=== PATIENT | male | born 1945 | race African-American/Black ===

== ENCOUNTER 2017-12-24 18:12 | Emergency (ER) | payer MEDICARE, OTHER ==
[~2017-12-24] VITALS: Ht 175.3 cm; Wt 71.7 kg
[~2017-12-24 18:12] MED LIST: AMARYL4 MG ORAL; AMIODARONE HCL200 MG; AMIODARONE HCL400 M1 ORAL; ASPIRIN-LOW81 MG ORAL; CARVEDILOL6.25 MG; CARVEDILOL6.25 MG PO; CELEBREX100 MG; CLONIDINE HCL0.1 MG; DIOVAN HCT 1601 EAC1 ORAL; FERROUS SULFAT325 MG ORAL; FLOMAX0.4 MG ORAL; FOSPHENYTOIN 100 MG PO; GLIPIZIDE5 MG ORAL; GUAIFENESIN-CO118 M1 ORAL; HUMALOG100 UNIT/4 SUBQ; LANTUS SOL100 UNIT/1 SUBQ; LIDOPATCH1 EACH TDERMAL; LOVAZA1 GM ORAL; MEGACE ORA400 MG/10 ORAL; METOPROLOL TART50 MG PO; MULTAQ400 MG ORAL; NATEGLINIDE120 MG; NITROGLYCERIN0.4 MG SL; NORCO 5/3251 TAB ORAL; OMEPRAZOLE20 M1 ORAL; ONGLYZA5 MG ORAL; OYST-CAL D TAB1 EACH PO; PEN NEEDLE1 EAC5; PLAVIX75 MG ORAL; REQUIP0.5 MG PO; RESTASIS1 EACH BOTH EYES; ROBITUSSIN AC5 ML ORAL; SANDIMMUNE PO; SIMVASTATIN10 MG ORAL; STARLIX120 MG PO; STARLIX60 MG ORAL; TAMIFLU75 MG ORAL; TOPROL XL25 MG ORAL; VASCEPA1 GM; XARELTO10 MG PO; ZESTRIL20 MG ORAL; ZESTRIL20 MG PO; ZITHROMAX250 MG ORAL; [UNRECOGNIZED DRUG - OTHER] PO
[2017-12-24 18:27] VITALS: BP 136/66
--- NOTE | 2017-12-24 19:00 | Emergency Room Report ---
History of Present Illness General Chief Complaint: Skin Rash/Abscess Source: Patient, Medical Record Present Illness HPI 72-year-old male presents to the emergency department complaining of multiple raised erythematous follicles about the jawline N chin 3 days status post shaving with a razor that is very old. Patient also reports swelling and tenderness to a small lump on the left side of the lower neck. Patient denies sore throat or changes in voice. Patient denies fevers or chills. Patient denies itching. Denies lesions/rashes elsewhere on the body. Denies new medications or body washes or creams. Denies swelling of the lips, tongue , throat or airway. Denies wheezing, or shortness of breath. Denies recent travel , recent illness or ill contacts. denies blisters, oral lesions, or sloughing of the skin. Allergies: Coded Allergies: BACLOFEN (Verified Allergy, Mild, 07/04/09) DULOXETINE (Verified Allergy, Unknown, 07/04/09) IODINE (Verified Allergy, Unknown, 10/11/10) PREGABALIN (Verified Allergy, Unknown, Rash, 07/23/14) SEVERE VOMITING AND RASH TRAMADOL (Verified Allergy, Unknown, 10/11/10) TRIMETHOBENZAMIDE (Verified Allergy, Unknown, 10/11/10) HYDROCODONE (Verified Adverse Reaction, Intermediate, BURNING IN STOMACH/ GI UPSET, 07/20/14) HYDROCHLOROTHIAZIDE (Verified Adverse Reaction, Mild, LEG CRAMPS, 07/20/14) Patient History Past Medical History: see triage record Past Surgical History: none Pertinent Family History: none Immunizations: UTD Reviewed Nursing Documentation: PMH: Agreed, PSxH: Agreed Nursing Documentation-PM Past Medical History: No History, Except For Hx Cardiac Problems: Yes - HIGH CHOLESTEROL Hx Hypertension: Yes Hx Pacemaker: Yes Hx Diabetes: Yes Hx Cancer: No Hx Gastrointestinal Problems: Yes - HX OF GERD Hx Neurological Problems: Yes 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 Hx Tremors: Yes - COMPLAINED OF HAVING TREMORS ON AND OFF Hx Dizziness: Yes Hx Headaches: Yes Hx Weakness: Yes Review of Systems All Other Systems: negative except mentioned in HPI Physical Exam Vital Signs Date Time Temp Pulse Resp B/P (MAP) Pulse Ox O2 Delivery O2 Flow Rate FiO2 12/24/17 18:17 98.0 60 18 136/66 96 Room Air 98.1 Sp02 EP Interpretation: reviewed, normal General Appearance: no apparent distress, alert, GCS 15, non-toxic Head: normocephalic, atraumatic ENT: hearing grossly normal, normal voice Neck: full range of motion, no meningismus, no bony tend Respiratory: lungs clear, normal breath sounds, speaking full sentences Cardiovascular #1: regular rate, rhythm Musculoskeletal: back normal, gait/station normal, normal range of motion, non- tender Neurologic: alert, oriented x3, responsive, motor strength/tone normal, sensory intact, speech normal, grossly normal Psychiatric: judgement/insight normal Skin: normal color, warm/dry, well hydrated, other - multiple inflammed hair follicles no pustules noted, location about the mustache and bear area, no well defined board or annular appearance. 1 sebaceous cyst on the left side of the neck less than 0.5cm in size, some thick white d/c expressing noted, palpable capsule. Lymphatic: no adenopathy Medical Decision Making PA Attestation Dr. Carter is my supervising Physician whom patient management has been discussed with. Diagnostic Impression: Primary Impression: Folliculitis Additional Impression: Sebaceous cyst ER Course 72-year-old male presents to the emergency department complaining of multiple raised erythematous follicles about the jawline N chin 3 days status post shaving with a razor that is very old. Patient also reports swelling and tenderness to a small lump on the left side of the lower neck. Patient denies sore throat or changes in voice. Patient denies fevers or chills. Patient denies itching. Denies lesions/rashes elsewhere on the body. Denies new medications or body washes or creams. Denies swelling of the lips, tongue , throat or airway. Denies wheezing, or shortness of breath. Denies recent travel , recent illness or ill contacts. denies blisters, oral lesions, or sloughing of the skin. Ddx considered but are not limited to cellulitis, abscess, cystic acne, necrotizing fasciitis, insect bite, folliculitis, tinea barbae, sebaceous cyst. Vital signs: are WNL, pt. is afebrile H&PE are most consistent with sebaceous cyst of the left side of the neck, and folliculitis. ORDERS: none required at this time, the diagnosis is clinical ED INTERVENTIONS: - some purulent d/c is expressed with only manual pressure. cyst is palpated. DISCHARGE: At this time pt. is stable for d/c to home. Will provide printed patient care instructions, and any necessary prescriptions. Care plan and follow up instructions have been discussed with the patient prior to discharge. Last Vital Signs Date Time Temp Pulse Resp B/P (MAP) Pulse Ox O2 Delivery O2 Flow Rate FiO2 12/24/17 18:17 98.0 60 18 136/66 96 Room Air 98.1 Disposition: HOME, SELF-CARE Condition: Stable Scripts Cephalexin* (KEFLEX*) 500 Mg Capsule 500 MG ORAL EVERY 12 HOURS for 7 Days, #14 CAP 0 Refills Prov: Homa Randolph 12/24/17 Clindamycin Phosphate (CLINDAGEL) 40 Ml Gel..ml. 1 APPLIC TP BID, #40 ML Prov: Homa Randolph 12/24/17 Referrals: NON PHYSICIAN (PCP) Patient Instructions: Epidermal Cyst, [id number], Folliculitis Additional Instructions: Take medications as directed. Follow up with a Primary Care Provider in 3-5 days, even if your symptoms have resolved. --Please review list of primary care clinics, if you do not already have a primary care provider Return sooner to ED if new symptoms occur, or current symptoms become worse. - Please note that this Emergency Department Report was dictated using [employer] technology manager technology software, occasionally this can lead to erroneous entry secondary to interpretation by the dictation equipment. Homa Randolph Dec 24, 2017 19:00
[2017-12-24] MEDS ORDERED: CEPHALEXIN500 MG ORAL (19:01)
[2017-12-24] MEDS ORDERED: CLINDAGEL40 M1 TP (19:01)
[2017-12-24 19:07] VITALS: BP 136/66
== END 2017-12-24 19:07 | disposition home or self-care (01) ==
LOC: EMR 18:30
DX: L73.9 Follicular disorder, unspecified (principal); L72.3 Sebaceous cyst; I10 Essential (primary) hypertension; E11.9 Type 2 diabetes mellitus without complications; Z95.0 Presence of cardiac pacemaker; Z88.6 Allergy status to analgesic agent; Z88.8 Allergy status to other drugs, medicaments and biological substances
CPT/HCPCS: 99284

== ENCOUNTER 2019-09-06 11:47 | Emergency (ER) | payer MEDICARE, OTHER ==
[~2019-09-06] VITALS: Ht 175.3 cm; Wt 68.0 kg
[~2019-09-06 11:47] MED LIST changes: +CEPHALEXIN500 MG ORAL; +CLINDAGEL40 M1 TP
[2019-09-06 12:00] VITALS: BP 105/59
[2019-09-06 12:30] LABS: BASOPHILS % (AUTO) 0.9 % (0.0-2.0); EOSINOPHILS % (AUTO) 0.7 % (0.0-3.0); HEMATOCRIT 33.6 % (42.0-52.0); LYMPHOCYTES % (AUTO) 29.1 % (20.0-45.0); MEAN CORPUSCULAR VOLUME 94 FL (80-99); MONOCYTES % (AUTO) 12.6 % (1.0-10.0); NEUTROPHILS % (AUTO) 56.7 % (45.0-75.0); PLATELET COUNT 155 K/UL (150-450); RED BLOOD COUNT 3.57 M/UL (4.70-6.10); RED CELL DISTRIBUTION WIDTH 9.9 % (11.6-14.8); WHITE BLOOD COUNT 4.8 K/UL (4.8-10.8)
[2019-09-06 12:44] LABS: ANION GAP 9 mmol/L (5-15); BLOOD UREA NITROGEN 21 mg/dL (7-18); CALCIUM 8.6 MG/DL (8.5-10.1); CARBON DIOXIDE 26 MMOL/L (21-32); CHLORIDE 104 MMOL/L (98-107); CREATININE 1.2 MG/DL (0.55-1.30); POTASSIUM 4.4 MMOL/L (3.5-5.1); SODIUM 139 MMOL/L (136-145)
[2019-09-06 12:48] LABS: ALANINE AMINOTRANSFERASE 35 U/L (12-78); ALBUMIN 3.3 G/DL (3.4-5.0); ALKALINE PHOSPHATASE 41 U/L (46-116); ASPARTATE AMINO TRANSFERASE 26 U/L (15-37); BILIRUBIN,TOTAL 0.4 MG/DL (0.2-1.0)
--- NOTE | 2019-09-06 13:15 | NUR ---
ED Nurse Note: Pt states pain is 2/10. Family at bedside.
[2019-09-06] MEDS ORDERED: AMOXICILLIN500 MG ORAL (13:21)
[2019-09-06] MEDS ORDERED: PROMETHAZINE-D118 ML ORAL (13:21)
[2019-09-06 13:30] VITALS: BP 108/62
--- NOTE | 2019-09-06 13:30 | NUR ---
ER DISCHARGE NOTE: Patient is cleared to be discharged per ERMD, pt is aox4, on room air, with stable vital signs. pt was given dc and prescription instructions, pt was able to verbalize understanding, pt id band and iv site removed without complications. pt is able to ambulate with steady gait. pt took all belongings. Pt left ED with family. Pt states pain is 1/10
--- NOTE | 2019-09-06 14:42 | Emergency Room Report ---
History of Present Illness General Chief Complaint: Chest Pain Source: Patient Present Illness HPI 74-year-old male presents ED for evaluation. Complaining of cough and congestion for the last week. Also complaining of chest pain. Anterior, dull, 5 out of 10, nonradiating. Worse with coughing. History of pacemaker. Denies shortness of breath. States he did receive flu shot this year. Denies fevers or chills. No other aggravating relieving factors. Denies any other associated symptoms Allergies: Coded Allergies: BACLOFEN (Verified Allergy, Mild, 07/04/09) DULOXETINE (Verified Allergy, Unknown, 07/04/09) IODINE (Verified Allergy, Unknown, 10/11/10) PREGABALIN (Verified Allergy, Unknown, Rash, 07/23/14) SEVERE VOMITING AND RASH TRAMADOL (Verified Allergy, Unknown, 10/11/10) TRIMETHOBENZAMIDE (Verified Allergy, Unknown, 10/11/10) HYDROCODONE (Verified Adverse Reaction, Intermediate, BURNING IN STOMACH/ GI UPSET, 07/20/14) HYDROCHLOROTHIAZIDE (Verified Adverse Reaction, Mild, LEG CRAMPS, 07/20/14) Patient History Past Medical History: HTN, GERD Past Surgical History: pacemaker Pertinent Family History: none Social History: Denies: smoking, alcohol use, drug use Immunizations: UTD Reviewed Nursing Documentation: PMH: Agreed; PSxH: Agreed Nursing Documentation-PMH Past Medical History: No History, Except For Hx Hypertension: Yes Hx Pacemaker: Yes Hx Diabetes: Yes Hx Cancer: No Hx Gastrointestinal Problems: Yes - HX OF GERD Hx Neurological Problems: Yes 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 Hx Tremors: Yes - COMPLAINED OF HAVING TREMORS ON AND OFF Hx Dizziness: Yes Hx Headaches: Yes Hx Weakness: Yes Review of Systems All Other Systems: negative except mentioned in HPI Physical Exam Vital Signs Date Time Temp Pulse Resp B/P (MAP) Pulse Ox O2 Delivery O2 Flow Rate FiO2 09/06/19 11:50 97.9 65 19 105/59 (74) 96 Room Air Sp02 EP Interpretation: reviewed, normal General Appearance: no apparent distress, alert, GCS 15, non-toxic Head: normocephalic, atraumatic Eyes: bilateral eye normal inspection, bilateral eye PERRL ENT: hearing grossly normal, normal pharynx, no angioedema, normal voice Neck: full range of motion, supple/symm/no masses Respiratory: lungs clear, normal breath sounds, speaking full sentences, other - reproducible anterior chest wall pain Cardiovascular #1: regular rate, rhythm, no edema Cardiovascular #2: 2+ carotid (R), 2+ carotid (L), 2+ radial (R), 2+ radial (L) , 2+ dorsalis pedis (R), 2+ dorsalis pedis (L) Gastrointestinal: normal bowel sounds, non tender, soft, non-distended, no guarding, no rebound Rectal: deferred Genitourinary: normal inspection, no CVA tenderness Musculoskeletal: back normal, gait/station normal, normal range of motion, non- tender Neurologic: alert, oriented x3, responsive, motor strength/tone normal, sensory intact, speech normal Psychiatric: judgement/insight normal, memory normal, mood/affect normal, no suicidal/homicidal ideation Reflexes: 3+ bicep (R), 3+ bicep (L), 3+ tricep (R), 3+ tricep (L), 3+ knee (R) , 3+ knee (L) Lymphatic: no adenopathy Medical Decision Making Diagnostic Impression: Primary Impression: Atypical pneumonia ER Course Hospital Course 74-year-old male presents to ED complaining of chset pain, cough Differential diagnoses include: URI, bronchitis, asthma/COPD, pneumonia Clinical course Patient placed on stretcher. After initial history, physical exam reveals an elderly male in no acute distress. Bilateral TM unremarkable. No pharyngeal erythema. No tonsillar exudates. No lymphadenopathy. lungs clear. I ordered labs, IV fluids, CXR, EKG Labs reviewed- no leukocytosis, hb/hct stable, electrolytes ok, trop negative Chest x-ray no focal consolidation. pcemaker noted EKG - paced rhythm, no acute ischemic changes interpreted by me I discussed findings with the patient. Negative troponin. Work-up unremarkable. Chest x-ray negative. Vitals stable. Pain is likely muscular based on exam and presentation. However given age and comorbidities I did offer option for telemetry observation. Patient declined. We will treat as atypical pneumonia and we will prescribe antibiotics. States that he will follow-up with his PMD Diagnosis - atypical pneumonia Stable and discharged home with prescriptions for amoxicillin, promethazine/DM. Instructed to followup with PMD. Return to ED if symptoms recur or worsen Labs Test 09/06/19 12:15 White Blood Count 4.8 K/UL (4.8-10.8) Red Blood Count 3.57 M/UL (4.70-6.10) Hemoglobin 12.0 G/DL (14.2-18.0) Hematocrit 33.6 % (42.0-52.0) Mean Corpuscular Volume 94 FL (80-99) Mean Corpuscular Hemoglobin 33.7 PG (27.0-31.0) Mean Corpuscular Hemoglobin Concent 35.8 G/DL (32.0-36.0) Red Cell Distribution Width 9.9 % (11.6-14.8) Platelet Count 155 K/UL (150-450) Mean Platelet Volume 5.3 FL (6.5-10.1) Neutrophils (%) (Auto) 56.7 % (45.0-75.0) Lymphocytes (%) (Auto) 29.1 % (20.0-45.0) Monocytes (%) (Auto) 12.6 % (1.0-10.0) Eosinophils (%) (Auto) 0.7 % (0.0-3.0) Basophils (%) (Auto) 0.9 % (0.0-2.0) Sodium Level 139 MMOL/L (136-145) Potassium Level 4.4 MMOL/L (3.5-5.1) Chloride Level 104 MMOL/L (98-107) Carbon Dioxide Level 26 MMOL/L (21-32) Anion Gap 9 mmol/L (5-15) Blood Urea Nitrogen 21 mg/dL (7-18) Creatinine 1.2 MG/DL (0.55-1.30) Estimat Glomerular Filtration Rate mL/min (>60) Glucose Level 179 MG/DL (74-106) Calcium Level 8.6 MG/DL (8.5-10.1) Total Bilirubin 0.4 MG/DL (0.2-1.0) Aspartate Amino Transf (AST/SGOT) 26 U/L (15-37) Alanine Aminotransferase (ALT/SGPT) 35 U/L (12-78) Alkaline Phosphatase 41 U/L (46-116) Troponin I 0.006 ng/mL (0.000-0.056) Total Protein 6.5 G/DL (6.4-8.2) Albumin 3.3 G/DL (3.4-5.0) Globulin 3.2 g/dL Albumin/Globulin Ratio 1.0 (1.0-2.7) Hematology Test 09/06/19 12:15 White Blood Count 4.8 K/UL (4.8-10.8) Red Blood Count 3.57 M/UL (4.70-6.10) L Hemoglobin 12.0 G/DL (14.2-18.0) L Hematocrit 33.6 % (42.0-52.0) L Mean Corpuscular Volume 94 FL (80-99) Mean Corpuscular Hemoglobin 33.7 PG (27.0-31.0) H Mean Corpuscular Hemoglobin Concent 35.8 G/DL (32.0-36.0) Red Cell Distribution Width 9.9 % (11.6-14.8) L Platelet Count 155 K/UL (150-450) Mean Platelet Volume 5.3 FL (6.5-10.1) L Neutrophils (%) (Auto) 56.7 % (45.0-75.0) Lymphocytes (%) (Auto) 29.1 % (20.0-45.0) Monocytes (%) (Auto) 12.6 % (1.0-10.0) H Eosinophils (%) (Auto) 0.7 % (0.0-3.0) Basophils (%) (Auto) 0.9 % (0.0-2.0) Chemistry Test 09/06/19 12:15 Sodium Level 139 MMOL/L (136-145) Potassium Level 4.4 MMOL/L (3.5-5.1) Chloride Level 104 MMOL/L (98-107) Carbon Dioxide Level 26 MMOL/L (21-32) Anion Gap 9 mmol/L (5-15) Blood Urea Nitrogen 21 mg/dL (7-18) H Creatinine 1.2 MG/DL (0.55-1.30) Estimat Glomerular Filtration Rate mL/min (>60) Glucose Level 179 MG/DL (74-106) H Calcium Level 8.6 MG/DL (8.5-10.1) Total Bilirubin 0.4 MG/DL (0.2-1.0) Aspartate Amino Transf (AST/SGOT) 26 U/L (15-37) Alanine Aminotransferase (ALT/SGPT) 35 U/L (12-78) Alkaline Phosphatase 41 U/L (46-116) L Troponin I 0.006 ng/mL (0.000-0.056) Total Protein 6.5 G/DL (6.4-8.2) Albumin 3.3 G/DL (3.4-5.0) L Globulin 3.2 g/dL Albumin/Globulin Ratio 1.0 (1.0-2.7) EKG Diagnostic Results Rate: normal Rhythm: other - atrial paced ST Segments: no acute changes ASA given to the pt in ED: No Rhythm Strip Diag. Results EP Interpretation: yes Rhythm: no PVC's, no ectopy Chest X-Ray Diagnostic Results Chest X-Ray Diagnostic Results : Chest X-Ray Ordered: Yes # of Views/Limited/Complete: 1 View Indication: Chest Pain EP Interpretation: Yes Interpretation: no consolidation, no effusion, no pneumothorax, no acute cardiopulmonary disease, other - pacemaker Impression: No acute disease Electronically Signed by: Electronically signed by Damien Kiser MD Last Vital Signs Date Time Temp Pulse Resp B/P (MAP) Pulse Ox O2 Delivery O2 Flow Rate FiO2 09/06/19 12:00 98.8 19 105/59 96 Room Air 09/06/19 12:00 72 Status: improved Disposition: HOME, SELF-CARE Condition: Stable Scripts D-Methorphan Hb/Prometh Hcl* (PROMETHAZINE-DM SYRUP*) 118 Ml Syrup 5 ML ORAL Q6H PRN for For Cough, #118 ML 0 Refills Prov: Damien Kiser MD 09/06/19 Amoxicillin* (AMOXIL*) 500 Mg Capsule 500 MG ORAL THREE TIMES A DAY, #21 CAP Prov: Damien Kiser MD 09/06/19 Referrals: NON PHYSICIAN (PCP) Patient Instructions: Community-Acquired Pneumonia, Adult, [id number] Damien Kiser MD Sep 06, 2019 14:42
--- NOTE | 2019-09-06 14:45 | Diagnostic Imaging Report ---
Indication: Reason For Exam: CP Technique: One view of the chest Comparison: 07/20/2014 Findings: Lungs and pleural spaces are clear. The heart size is normal. There is no significant interim change Impression: No acute process
[2019-09-06 16:22] LABS: APPEARANCE,URINE SLIGHTLY CLOUDY; BILIRUBIN, URINE NEGATIVE (NEGATIVE); GLUCOSE, URINE (UA) 3+ (NEGATIVE); KETONES,URINE NEGATIVE (NEGATIVE); LEUKOCYTE ESTERASE ,URINE NEGATIVE (NEGATIVE); NITRITE,URINE NEGATIVE (NEGATIVE); PH,URINE 6 (4.5-8.0); PROTEIN,URINE NEGATIVE (NEGATIVE); UROBILINOGEN,URINE NORMAL MG/DL (0.0-1.0)
[2019-09-06 16:24] LABS: COLOR,URINE YELLOW
--- NOTE | 2019-09-07 12:37 | Cardiology Report ---
APPROVED REPORT EKG Measurement Heart [id number] atrial paced
== END 2019-09-06 13:30 | disposition home or self-care (01) ==
LOC: EMR 12:25
DX: J18.9 Pneumonia, unspecified organism (principal); Z88.8 Allergy status to other drugs, medicaments and biological substances; I10 Essential (primary) hypertension; K21.9 Gastro-esophageal reflux disease without esophagitis; E11.9 Type 2 diabetes mellitus without complications; Z95.0 Presence of cardiac pacemaker
CPT/HCPCS: 36415; 71045; 80053; 81003; 84484; 85025; 86710; 93005; 99284

== ENCOUNTER 2020-08-24 10:50 | Emergency (ER) | payer MEDICARE, OTHER ==
[~2020-08-24] VITALS: Ht 175.3 cm; Wt 68.0 kg
[~2020-08-24 10:50] MED LIST changes: +AMOXICILLIN500 MG ORAL; +PROMETHAZINE-D118 ML ORAL
[2020-08-24 11:30] VITALS: BP 120/61
--- NOTE | 2020-08-24 11:44 | Emergency Room Report ---
History of Present Illness General Chief Complaint: Abdominal Pain Source: Patient, Medical Record Present Illness HPI Patient is a 75-year-old male presents for increased abdominal discomfort. Reports of increased dark stool for the past 4 to 5 days. Is taking anticoagulation with Plavix. Had been having black stool for 3 to 4 days associated with some mild abdominal discomfort. Had multiple past medical history including arrhythmia for which he takes amiodarone. Denies any vomiting, denies any diarrhea Allergies: Coded Allergies: BACLOFEN (Verified Allergy, Mild, 07/04/09) DULOXETINE (Verified Allergy, Unknown, 07/04/09) IODINE (Verified Allergy, Unknown, 10/11/10) PREGABALIN (Verified Allergy, Unknown, Rash, 07/23/14) SEVERE VOMITING AND RASH TRAMADOL (Verified Allergy, Unknown, 10/11/10) TRIMETHOBENZAMIDE (Verified Allergy, Unknown, 10/11/10) HYDROCODONE (Verified Adverse Reaction, Intermediate, BURNING IN STOMACH/GI UPSET, 07/20/14) HYDROCHLOROTHIAZIDE (Verified Adverse Reaction, Mild, LEG CRAMPS, 07/20/14) COVID-19 Screening Contact w/high risk pt: No Experienced COVID-19 symptoms?: No COVID-19 Testing performed BEAUTY [employer]OP MANAGER: No Patient History Past Medical History: see triage record Reviewed Nursing Documentation: PMH: Agreed; PSxH: Agreed Nursing Documentation-PMH Past Medical History: No History, Except For Hx Hypertension: Yes Hx Pacemaker: Yes Hx Diabetes: Yes Hx Cancer: No Hx Gastrointestinal Problems: Yes - HX OF GERD Hx Neurological Problems: Yes 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 Hx Tremors: Yes - COMPLAINED OF HAVING TREMORS ON AND OFF Hx Dizziness: Yes Hx Headaches: Yes Hx Weakness: Yes Review of Systems All Other Systems: negative except mentioned in HPI Physical Exam Vital Signs Date Time Temp Pulse Resp B/P (MAP) Pulse Ox O2 Delivery O2 Flow Rate FiO2 08/24/20 10:57 98.1 61 20 120/61 (80) 95 Room Air Sp02 EP Interpretation: reviewed, normal General Appearance: normal inspection, well appearing, alert, Chronically Ill Head: atraumatic ENT: normal ENT inspection, hearing grossly normal, normal voice Neck: normal inspection, full range of motion, supple, no bony tend Respiratory: normal inspection, lungs clear, normal breath sounds, no respiratory distress, no retraction, no wheezing Cardiovascular #1: regular rate, rhythm, no edema Gastrointestinal: normal inspection, normal bowel sounds, non tender, soft, no guarding, no hernia Genitourinary: no CVA tenderness Musculoskeletal: normal inspection, back normal, normal range of motion Neurologic: alert, motor strength/tone normal, bar machine operator production III-XII nml as tested, oriented x3, responsive, speech normal, normal inspection Psychiatric: normal inspection, judgement/insight normal, mood/affect normal Medical Decision Making Diagnostic Impression: Primary Impression: Upper GI bleeding Additional Impression: History of anticoagulant use ER Course Patient presented for dark stool. Differential diagnosis included was not limited to gastritis, ulcer, anemia, coagulopathy among others. Because of complexity of patient's case laboratory tests and imaging studies were ordered. Patient's history is concerning for GI bleeding. He is currently on anticoagulation. Patient laboratory testing showed adequate hemoglobin. I offered the patient admission and patient stated that he did not want to be admitted to the hospital despite risks of worsening due to possible bleeding. CT imaging showed no evidence of acute obstruction.He stated would follow-up with his primary care physician for recheck. He was advised to return if he had any new concerns or changes mind. This medical record is generated with [employer] turning and beading machine operator software. There may be some turning and beading machine operator discrepancies related to use of this software Labs Test 08/24/20 11:30 08/24/20 11:55 White Blood Count 4.3 K/UL (4.8-10.8) Red Blood Count 3.91 M/UL (4.70-6.10) Hemoglobin 13.4 G/DL (14.2-18.0) Hematocrit 39.1 % (42.0-52.0) Mean Corpuscular Volume 100 FL (80-99) Mean Corpuscular Hemoglobin 34.2 PG (27.0-31.0) Mean Corpuscular Hemoglobin Concent 34.2 G/DL (32.0-36.0) Red Cell Distribution Width 11.5 % (11.6-14.8) Platelet Count 119 K/UL (150-450) Mean Platelet Volume 6.8 FL (6.5-10.1) Neutrophils (%) (Auto) 51.9 % (45.0-75.0) Lymphocytes (%) (Auto) 31.7 % (20.0-45.0) Monocytes (%) (Auto) 14.5 % (1.0-10.0) Eosinophils (%) (Auto) 1.1 % (0.0-3.0) Basophils (%) (Auto) 0.8 % (0.0-2.0) Prothrombin Time 11.7 SEC (9.30-11.50) Prothromb Time International Ratio 1.1 (0.9-1.1) Activated Partial Thromboplast Time 26 SEC (23-33) Sodium Level 137 MMOL/L (136-145) Potassium Level 4.0 MMOL/L (3.5-5.1) Chloride Level 103 MMOL/L (98-107) Carbon Dioxide Level 27 MMOL/L (21-32) Anion Gap 7 mmol/L (5-15) Blood Urea Nitrogen 17 mg/dL (7-18) Creatinine 1.3 MG/DL (0.55-1.30) Estimat Glomerular Filtration Rate > 60 mL/min (>60) Glucose Level 128 MG/DL (74-106) Calcium Level 8.8 MG/DL (8.5-10.1) Total Bilirubin 0.4 MG/DL (0.2-1.0) Aspartate Amino Transf (AST/SGOT) 31 U/L (15-37) Alanine Aminotransferase (ALT/SGPT) 27 U/L (12-78) Alkaline Phosphatase 59 U/L (46-116) Troponin I 0.000 ng/mL (0.000-0.056) Total Protein 6.5 G/DL (6.4-8.2) Albumin 3.7 G/DL (3.4-5.0) Globulin 2.8 g/dL Albumin/Globulin Ratio 1.3 (1.0-2.7) Lipase 418 U/L (73-393) Urine Color Pale yellow Urine Appearance Clear Urine pH 5 (4.5-8.0) Urine Specific [place] 1.010 (1.005-1.035) Urine Protein Negative (NEGATIVE) Urine Glucose (UA) 3+ (NEGATIVE) Urine Ketones Negative (NEGATIVE) Urine Blood Negative (NEGATIVE) Urine Nitrite Negative (NEGATIVE) Urine Bilirubin Negative (NEGATIVE) Urine Urobilinogen Normal MG/DL (0.0-1.0) Urine Leukocyte Esterase 1+ (NEGATIVE) Urine RBC 0 /HPF (0 - 0) Urine WBC 0-2 /HPF (0 - 0) Urine Squamous Epithelial Cells Few /LPF (NONE/OCC) Urine Bacteria Occasional /HPF (NONE) Last Vital Signs Date Time Temp Pulse Resp B/P (MAP) Pulse Ox O2 Delivery O2 Flow Rate FiO2 08/24/20 11:30 61 20 Room Air 08/24/20 11:30 98.1 120/61 95 Status: improved Disposition: HOME, SELF-CARE Condition: Stable Marcio Castaneda MD Aug 24, 2020 11:44
[2020-08-24 11:56] LABS: BASOPHILS % (AUTO) 0.8 % (0.0-2.0); EOSINOPHILS % (AUTO) 1.1 % (0.0-3.0); HEMATOCRIT 39.1 % (42.0-52.0); HEMOGLOBIN 13.4 G/DL (14.2-18.0); LYMPHOCYTES % (AUTO) 31.7 % (20.0-45.0); MEAN CORPUSCULAR VOLUME 100 FL (80-99); MONOCYTES % (AUTO) 14.5 % (1.0-10.0); NEUTROPHILS % (AUTO) 51.9 % (45.0-75.0); PLATELET COUNT 119 K/UL (150-450); RED BLOOD COUNT 3.91 M/UL (4.70-6.10); RED CELL DISTRIBUTION WIDTH 11.5 % (11.6-14.8); WHITE BLOOD COUNT 4.3 K/UL (4.8-10.8)
[2020-08-24 12:08] LABS: ANION GAP 7 mmol/L (5-15); BLOOD UREA NITROGEN 17 mg/dL (7-18); CALCIUM 8.8 MG/DL (8.5-10.1); CARBON DIOXIDE 27 MMOL/L (21-32); CHLORIDE 103 MMOL/L (98-107); CREATININE 1.3 MG/DL (0.55-1.30); SODIUM 137 MMOL/L (136-145)
[2020-08-24 12:12] LABS: ALANINE AMINOTRANSFERASE 27 U/L (12-78); ALBUMIN 3.7 G/DL (3.4-5.0); ALBUMIN/GLOBULIN RATIO 1.3 (1.0-2.7); ALKALINE PHOSPHATASE 59 U/L (46-116); ASPARTATE AMINO TRANSFERASE 31 U/L (15-37); BILIRUBIN,TOTAL 0.4 MG/DL (0.2-1.0)
[2020-08-24 12:14] LABS: INR 1.1 (0.9-1.1)
[2020-08-24 12:17] LABS: APPEARANCE,URINE CLEAR; BILIRUBIN, URINE NEGATIVE (NEGATIVE); COLOR,URINE PALE YELLOW; GLUCOSE, URINE (UA) 3+ (NEGATIVE); KETONES,URINE NEGATIVE (NEGATIVE); LEUKOCYTE ESTERASE ,URINE 1+ (NEGATIVE); NITRITE,URINE NEGATIVE (NEGATIVE); PH,URINE 5 (4.5-8.0); PROTEIN,URINE NEGATIVE (NEGATIVE); UROBILINOGEN,URINE NORMAL MG/DL (0.0-1.0)
[2020-08-24] MEDS ORDERED: VICTOZA 3-0.6 MG/0.1 SQ (12:26)
[2020-08-24] MEDS ORDERED: FAMOTIDINE20 MG ORAL (12:26)
[2020-08-24] MEDS ORDERED: ACETAMINOPHEN325 M1 ORAL (12:26)
[2020-08-24] MEDS ORDERED: CARAFATE1 G1 ORAL (12:40)
[2020-08-24] MEDS ORDERED: VITAMIN B122500 MCG PO (12:40)
[2020-08-24] MEDS ORDERED: MUPIROCIN22 GM TOPIC (12:40)
[2020-08-24] MEDS ORDERED: VOLTAREN100 G1 TP (12:40)
[2020-08-24] MEDS ORDERED: GABAPENTIN100 MG ORAL (12:40)
[2020-08-24] MEDS ORDERED: TIMOLOL 0.5%-LAT5 ML OP (12:40)
[2020-08-24] MEDS ORDERED: AMLODIPINE BESYL5 MG ORAL (12:40)
[2020-08-24] MEDS ORDERED: AZOPT10 ML OP (12:43)
--- NOTE | 2020-08-24 13:13 | Diagnostic Imaging Report ---
Indication: Pain, dark stools x4-5 days, increase abdominal discomfort, possible GI bleed Technique: Spiral acquisitions obtained through the abdomen and pelvis. No oral contrast utilized, per emergency room physician request No IV contrast utilized, per referring physician request.. Multiplanar reconstructions were generated. Total dose length product 233 mGycm. CTDIvol(s) 4 mGy. Dose reduction achieved using automated exposure control Comparison: None Findings: Lack of enteric contrast limits assessment of the GI tract. The appendix is normal. There are colonic diverticula. No evidence of diverticulitis. No small bowel distention. No free or loculated intraperitoneal gas or fluid. There is a tiny umbilical hernia contains only fat. There are small bilateral inguinal hernias that contain only fat. The distal esophagus, stomach are unremarkable. There is a small duodenal diverticulum. Lack of IV contrast limits assessment of the solid organs. The gallbladder has been removed. The liver, bile ducts, pancreas, spleen, adrenals are unremarkable. The kidneys demonstrate cysts bilaterally. No renal or ureteral calculi, hydronephrosis, or hydroureter. No retroperitoneal or mesenteric mass or adenopathy. No pelvic mass or adenopathy. There is mild bladder wall thickening. The prostate is somewhat prominent. The included lung bases are clear. There are cardiac pacemaker wires demonstrated. The heart size is borderline enlarged. The bones demonstrate evidence of prior L4 and L5 laminectomies. There is anterior offset of L4 on L5 and secondary degenerative change. Impression: Limited assessment of the GI tract, due to lack of enteric contrast demonstration Mild bladder wall thickening, could indicate mild cystitis changes. No definite acute abnormality otherwise Colonic diverticulosis. No evidence of diverticulitis Prior cholecystectomy L4 and L5 laminectomies. Degenerative changes and slight alignment abnormality L4-5 Borderline cardiomegaly Other findings as noted, including cardiac pacemaker, bilateral renal cysts, duodenal diverticulum, small fat-containing bilateral inguinal and umbilical hernias The CT scanner at [facility] is accredited by the [employer] and the scans are performed using protocols designed to limit radiation exposure to as low as reasonably achievable to attain images of sufficient resolution adequate for diagnostic evaluation.
[2020-08-24 13:30] VITALS: BP 122/72
--- NOTE | 2020-08-24 13:53 | Consultation ---
History of Present Illness General Chief Complaint: Abdominal Pain Present Illness Allergies: Coded Allergies: BACLOFEN (Verified Allergy, Mild, 07/04/09) DULOXETINE (Verified Allergy, Unknown, 07/04/09) IODINE (Verified Allergy, Unknown, 10/11/10) PREGABALIN (Verified Allergy, Unknown, Rash, 07/23/14) SEVERE VOMITING AND RASH TRAMADOL (Verified Allergy, Unknown, 10/11/10) TRIMETHOBENZAMIDE (Verified Allergy, Unknown, 10/11/10) HYDROCODONE (Verified Adverse Reaction, Intermediate, BURNING IN STOMACH/GI UPSET, 07/20/14) HYDROCHLOROTHIAZIDE (Verified Adverse Reaction, Mild, LEG CRAMPS, 07/20/14) Medication History Scheduled Amiodarone Hcl* (Cordarone*), 100 DAILY, (Reported) Amlodipine Besylate* (Amlodipine Besylate*), 5 MG ORAL DAILY, (Reported) Amoxicillin* (Amoxil*), 500 MG ORAL THREE TIMES A DAY Aspirin (Aspirin EC), 81 MG ORAL DAILY, (Reported) Brinzolamide (Azopt), 10 ML OP THREE TIMES A DAY, (Reported) Carvedilol* (Carvedilol*), 12.5 MG PO BID, (Reported) Celecoxib* (Celebrex*), BID, (Reported) Cephalexin* (Keflex*), 500 MG ORAL EVERY 12 HOURS Clindamycin Phosphate (Clindagel), 1 APPLIC TP BID Clonidine Hcl (Clonidine Hcl), Q4HR, (Reported) Clopidogrel Bisulfate* (Plavix*), 75 MG ORAL DAILY, (Reported) Cyclosporine (Restasis), BOTH EYES BID, (Reported) Diclofenac Sodium (Voltaren), 100 GM TP TWICE A DAY, (Reported) Famotidine* (Pepcid 20mg tablet*), 20 MG ORAL DAILY, (Reported) Gabapentin* (Gabapentin*), 300 MG ORAL THREE TIMES A DAY, (Reported) Glipizide* (Glipizide*), 5 MG ORAL BIDAC, (Reported) Icosapent Ethyl (Vascepa), 2 CAP BID, (Reported) Insulin Glargine (Lantus), 10 SUBQ BEDTIME, (Reported) Liraglutide (Victoza 3-Reuben), 1.8 MG SQ DAILY, (Reported) Nateglinide (Nateglinide), BID, (Reported) [place]-3 Acid Ethyl Esters (Lovaza), 1 GM ORAL DAILY, (Reported) Omeprazole (Omeprazole), 20 MG ORAL TWICE A DAY, (Reported) Saxagliptin Hcl (Onglyza), 5 MG ORAL DAILY, (Reported) Simvastatin (Zocor), 20 MG ORAL BEDTIME, (Reported) Sucralfate* (Carafate*), 1 GM ORAL DAILY, (Reported) Tamsulosin HCl (Flomax), 0.4 MG ORAL BEDTIME, (Reported) Timolol Maleate/Latanoprost/Pf (Timolol 0.5%-Latanopros 0.005%), 5 ML OP TWICE A DAY, (Reported) Valsartan/Hydrochlorothiazide 160-25MG (Diovan Hct 160-25 Mg Tablet), 1 TAB ORAL DAILY, (Reported) Scheduled PRN Acetaminophen* (Acetaminophen 325MG Tablet*), 325 MG ORAL Q8HR PRN for For Pain, (Reported) D-Methorphan Hb/Prometh Hcl* (Promethazine-Dm Syrup*), 5 ML ORAL Q6H PRN for For Cough Mupirocin* (Mupirocin*), 1 APPLIC TOPIC DAILY PRN for wound, (Reported) Miscellaneous Medications Cyanocobalamin (Vitamin B-12) (Vitamin B12), 1,000 MCG PO, (Reported) Fosphenytoin Sodium (Cerebyx), 100 MG PO, (Reported) Lidocaine/Menthol (Lidopatch), 1 PATCH TDERMAL, (Reported) Durable Medical Equipment [place], Insulin Disposable (Pen Needle), (Reported), (DME) Patient History Healthcare decision maker Resuscitation status Advanced Directive on File Past Medical/Surgical History Past Medical/Surgical History: (1) History of hypertension (2) History of anticoagulant use (3) Hypercholesteremia (4) BPH (benign prostatic hyperplasia) (5) Diabetes mellitus Review of Systems All Other Systems: negative except mentioned in HPI Physical Exam General Appearance: cachetic, thin Lines, tubes and drains: peripheral HEENT: mucous membranes moist Neck: non-tender, normal alignment, supple, normal inspection Respiratory/Chest: chest wall non-tender, lungs clear, no respiratory distress Cardiovascular/Chest: normal peripheral pulses, regular rhythm Abdomen: non tender Last 24 Hour Vital Signs Date Time Temp Pulse Resp B/P (MAP) Pulse Ox O2 Delivery O2 Flow Rate FiO2 08/24/20 13:30 98.1 68 19 122/72 96 Room Air 08/24/20 11:30 61 20 Room Air 08/24/20 11:30 98.1 61 20 120/61 95 Room Air 08/24/20 10:57 98.1 61 20 120/61 (80) 95 Room Air Laboratory Tests Test 08/24/20 11:30 08/24/20 11:55 White Blood Count 4.3 K/UL (4.8-10.8) L Red Blood Count 3.91 M/UL (4.70-6.10) L Hemoglobin 13.4 G/DL (14.2-18.0) L Hematocrit 39.1 % (42.0-52.0) L Mean Corpuscular Volume 100 FL (80-99) H Mean Corpuscular Hemoglobin 34.2 PG (27.0-31.0) H Mean Corpuscular Hemoglobin Concent 34.2 G/DL (32.0-36.0) Red Cell Distribution Width 11.5 % (11.6-14.8) L Platelet Count 119 K/UL (150-450) L Mean Platelet Volume 6.8 FL (6.5-10.1) Neutrophils (%) (Auto) 51.9 % (45.0-75.0) Lymphocytes (%) (Auto) 31.7 % (20.0-45.0) Monocytes (%) (Auto) 14.5 % (1.0-10.0) H Eosinophils (%) (Auto) 1.1 % (0.0-3.0) Basophils (%) (Auto) 0.8 % (0.0-2.0) Prothrombin Time 11.7 SEC (9.30-11.50) H Prothromb Time International Ratio 1.1 (0.9-1.1) Activated Partial Thromboplast Time 26 SEC (23-33) Sodium Level 137 MMOL/L (136-145) Potassium Level 4.0 MMOL/L (3.5-5.1) Chloride Level 103 MMOL/L (98-107) Carbon Dioxide Level 27 MMOL/L (21-32) Anion Gap 7 mmol/L (5-15) Blood Urea Nitrogen 17 mg/dL (7-18) Creatinine 1.3 MG/DL (0.55-1.30) Estimat Glomerular Filtration Rate > 60 mL/min (>60) Glucose Level 128 MG/DL (74-106) H Calcium Level 8.8 MG/DL (8.5-10.1) Total Bilirubin 0.4 MG/DL (0.2-1.0) Aspartate Amino Transf (AST/SGOT) 31 U/L (15-37) Alanine Aminotransferase (ALT/SGPT) 27 U/L (12-78) Alkaline Phosphatase 59 U/L (46-116) Troponin I 0.000 ng/mL (0.000-0.056) Total Protein 6.5 G/DL (6.4-8.2) Albumin 3.7 G/DL (3.4-5.0) Globulin 2.8 g/dL Albumin/Globulin Ratio 1.3 (1.0-2.7) Lipase 418 U/L (73-393) H Urine Color Pale yellow Urine Appearance Clear Urine pH 5 (4.5-8.0) Urine Specific [place] 1.010 (1.005-1.035) Urine Protein Negative (NEGATIVE) Urine Glucose (UA) 3+ (NEGATIVE) H Urine Ketones Negative (NEGATIVE) Urine Blood Negative (NEGATIVE) Urine Nitrite Negative (NEGATIVE) Urine Bilirubin Negative (NEGATIVE) Urine Urobilinogen Normal MG/DL (0.0-1.0) Urine Leukocyte Esterase 1+ (NEGATIVE) H Urine RBC 0 /HPF (0 - 0) Urine WBC 0-2 /HPF (0 - 0) Urine Squamous Epithelial Cells Few /LPF (NONE/OCC) Urine Bacteria Occasional /HPF (NONE) Microbiology Date/Time Source Procedure Growth Status 08/24/20 11:30 Nasopharynx SARS-CoV-2 RdRp Gene Assay - Final Complete Height (Feet): 5 Height (Inches): 9.00 Weight (Pounds): 150 Medications Current Medications Medications (Trade) Dose Ordered Sig/Lesli Route PRN Reason Start Time Stop Time Status Last Admin Dose Admin Acetaminophen (Tylenol) 650 mg Q4H PRN ORAL fever 08/24/20 14:00 09/23/20 13:59 UNV Amiodarone HCl (Cordarone) 200 mg DAILY ORAL 08/25/20 09:00 11/23/20 08:59 Amlodipine Besylate (Norvasc) 5 mg DAILY ORAL 08/25/20 09:00 09/24/20 08:59 Carvedilol (Coreg) 12.5 mg Q12HR ORAL 08/24/20 21:00 09/23/20 20:59 Dextrose (Dextrose 50%) 25 ml Q30M PRN IV Hypoglycemia 08/24/20 14:00 11/22/20 13:59 UNV Dextrose (Dextrose 50%) 50 ml Q30M PRN IV Hypoglycemia 08/24/20 14:00 11/22/20 13:59 UNV Dextrose/Sodium Chloride 1,000 ml @ 75 mls/hr [id number] IV 08/24/20 14:00 09/23/20 13:59 UNV Gabapentin (Neurontin) 300 mg THREE TIMES A DAY ORAL 08/24/20 18:00 09/23/20 17:59 UNV Insulin Aspart (NovoLOG) BEFORE MEALS AND HS SUBQ 08/24/20 16:30 11/22/20 16:29 UNV Nitroglycerin (Ntg) 0.4 mg Q5M X 3 DOSES PRN SL Prn Chest Pain 08/24/20 14:00 09/23/20 13:59 UNV Ondansetron HCl (Zofran) 4 mg Q6H PRN IVP Nausea & Vomiting 08/24/20 14:00 09/23/20 13:59 UNV Polyethylene Glycol (Miralax) 17 gm HSPRN PRN ORAL Constipation 08/24/20 14:00 09/23/20 13:59 UNV Sucralfate (Carafate) 1 gm DAILY ORAL 08/25/20 09:00 11/23/20 08:59 UNV Tamsulosin HCl (Flomax) 0.4 mg BEDTIME ORAL 08/24/20 21:00 09/23/20 20:59 UNV Temazepam (Restoril) 15 mg HSPRN PRN ORAL Insomnia 08/24/20 14:00 08/31/20 13:59 UNV Assessment/Plan Problem List: (1) Lower GI bleeding ICD Codes: K92.2 - Gastrointestinal hemorrhage, unspecified SNOMED: 16225026 (2) History of anticoagulant use ICD Codes: Z92.29 - Personal history of other drug therapy SNOMED: 069423607 (3) BPH (benign prostatic hyperplasia) ICD Codes: N40.0 - BPH (benign prostatic hyperplasia) SNOMED: 465617850 (4) Diabetes mellitus ICD Codes: E11.9 - Diabetes mellitus SNOMED: 56670489 Raquel Rm MD Aug 24, 2020 13:53
[2020-08-24] MEDS ORDERED: Miralax 17gm pkt ORAL PRN (14:00)
[2020-08-24] MEDS ORDERED: D5 1/2NS 1,000 ML IV SCH (14:00)
[2020-08-24] MEDS ORDERED: Nitroglycerin Subl 0.4mg tab SL PRN (14:00)
[2020-08-24] MEDS ORDERED: NovoLOG Insulin Flexpen SUBQ SCH (16:30)
[2020-08-24] MEDS ORDERED: Carvedilol 12.5mg tab ORAL SCH (21:00)
[2020-08-24] MEDS ORDERED: Tamsulosin 0.4mg cap ORAL SCH (21:00)
[2020-08-25] MEDS ORDERED: Sucralfate 1gm tab ORAL SCH (09:00)
[2020-08-25] MEDS ORDERED: Amiodarone 200mg tab ORAL SCH (09:00)
== END 2020-08-24 13:30 | disposition home or self-care (01) ==
LOC: EMR 11:25 → EDBEDREQ 12:09 → EMR 13:30 → CANBEDREQ 13:55
DX: K92.2 Gastrointestinal hemorrhage, unspecified (principal); Z79.02 Long term (current) use of antithrombotics/antiplatelets; Z88.8 Allergy status to other drugs, medicaments and biological substances; Z91.041 Radiographic dye allergy status; I10 Essential (primary) hypertension; Z95.0 Presence of cardiac pacemaker; E11.9 Type 2 diabetes mellitus without complications; K21.9 Gastro-esophageal reflux disease without esophagitis; Z79.82 Long term (current) use of aspirin; Z79.899 Other long term (current) drug therapy; N40.0 Benign prostatic hyperplasia without lower urinary tract symptoms
CPT/HCPCS: 36415; 74176; 80053; 81003; 83690; 84484; 85025; 85610; 85730; 86850; 86900; 86901; 99284; U0002